=== PATIENT | male | born 1965 | race Two or more races ===

== ENCOUNTER 2017-05-22 08:55 | Emergency (ER) | payer MEDICAID ==
[~2017-05-22] VITALS: Ht 175.3 cm; Wt 72.6 kg
[2017-05-22 09:37] VITALS: BP 137/79
[2017-05-22] MEDS ORDERED: cefTRIAXone SOD 1,000 MG VL IM ONE (10:15)
[2017-05-22] MEDS ORDERED: TETANUS-DIPTH-ACEL PERTUSSIS 0.5ML SYRG IM ONE (10:15)
[2017-05-22] MEDS ORDERED: NEOMYCIN-BACITRACIN-POLYM UNITDOSE PKG TOP OINT TOP ONE (10:15)
== END 2017-05-22 10:44 | disposition home or self-care (01) ==
LOC: ER 08:55
DX: S51.812A Laceration without foreign body of left forearm, initial encounter (principal); S61.411A Laceration without foreign body of right hand, initial encounter; F17.210 Nicotine dependence, cigarettes, uncomplicated; Z88.0 Allergy status to penicillin; W54.0XXA Bitten by dog, initial encounter; Y93.89 Activity, other specified; Y99.8 Other external cause status; Y92.89 Other specified places as the place of occurrence of the external cause; Z23 Encounter for immunization
CPT/HCPCS: 12002; 73090; 73130; 90471; 90715; 96372; 99284; J0696; J7030